=== PATIENT | male | born 1950 | race Two or more races ===

== ENCOUNTER → 2018-12-15 | Outpatient (CLI) | payer MEDICARE ==
--- NOTE | 2018-12-15 10:36 | Diagnostic Imaging Report ---
EXAM: US ABDOMEN COMPLETE, US PELVIC (NON OB) ROBLES OR F/U DATE: 12/15/2018 8:56 AM INDICATION: Hernia COMPARISON: None TECHNIQUE: Transverse and longitudinal garza scale and color doppler sonographic images of the upper abdomen were obtained. FINDINGS: There is no evidence of fluid or masses seen in the area of clinical concern in the right lower quadrant. LIVER 12.6 cm in the right midclavicular line. Normal echogenicity of the liver with normal contour, no masses. SPLEEN 8.6 cm in maximum diameter. Normal echogenicity, no masses. GALLBLADDER No gallbladder wall thickening, distension, stone, or pericholecystic fluid. NEgative reported sonographic Nails's sign. The gallbladder wall measures 2 mm. BILE DUCTS No intra nor extra-hepatic biliary dilation. Common bile duct measures 3 mm. PANCREAS: Obscured evaluation due to overlying bowel gas. RIGHT KIDNEY: 9.4 cm Echogenicity: Normal Collecting System: No hydronephrosis Stones: None Cyst/Mass: None LEFT KIDNEY: 10.4 cm Echogenicity: Normal Collecting System: No hydronephrosis Stones: None Cyst/Mass: None VESSELS: Aorta: Visualized portions are within normal size limits Inferior Vena Cava: Visualized portions are normal Main Portal Vein: 1.0 cm, normal size with hepatopetal flow. FREE FLUID: None Pelvis: No hernia visualized. IMPRESSION: Unremarkable abdominal and pelvic ultrasound. Specifically, no hernia is seen. If there is high clinical concern, CT can be considered for further anatomical visualization. Signed by: Rayo Salazar MD on 12/15/2018 10:33 AM
== END ==
LOC: US 08:45
PROVIDERS: ATTEND Family Medicine
DX: R10.2 Pelvic and perineal pain (principal)
CPT/HCPCS: 76700; 76857

== ENCOUNTER → 2020-09-30 | Outpatient (CLI) | payer MEDICARE | LOC: US 09:23 | PROVIDERS: ATTEND Family Medicine | DX: R10.84 Generalized abdominal pain (principal) | CPT/HCPCS: 76700 ==